=== PATIENT | female | born 1980 | race Caucasian/White ===

== ENCOUNTER 2024-08-12 11:01 | Emergency (ER) | payer MEDICAID, OTHER ==
[~2024-08-12] VITALS: Ht 154.9 cm; Wt 80.9 kg
[2024-08-12 12:21] LABS: Basophils # (auto) 0.1 10 ^3/uL (0-0.2); Basophils % (auto) 0.6 % (0.0-2.0); Eosinophils # (auto) 0.1 10 ^3/uL (0-0.8); Eosinophils % (auto) 1.2 % (0.0-7.0); Hematocrit 44.8 % (36.0-46.0); Hemoglobin 15.4 g/dL (12.2-16.2); Lymphocytes # (auto) 1.7 10 ^3/uL (0.4-5.4); Lymphocytes % (auto) 14.7 % (10.0-50.0); Mean Corpuscular Hemoglobin 28.2 pg (28.0-32.0); Mean Corpuscular Hgb Conc. 34.3 g/dL (32.0-36.0); Mean Corpuscular Volume 82.2 fL (80.0-100.0); Monocytes # (auto) 0.6 10 ^3/uL (0-1.3); Monocytes % (auto) 5.4 % (0.0-12.0); Neutrophils # (auto) 9.3 10 ^3/uL (1.6-8.6); Neutrophils % (auto) 78.1 % (37.0-80.0); Nucleated Red Blood Cells % 0.3 %; Platelet Count (auto) 269 10^3/uL (140-450); Red Blood Cells 5.45 10^6/uL (4.0-5.20); Red Cell Distribution Width 13.4 % (11.8-14.3); White Blood Cell 11.9 10^3/uL (4.4-10.8)
[2024-08-12 12:42] LABS: Urine Bacteria FEW /hpf (None Seen); Urine Blood 3+ /uL (Negative); Urine Clarity Turbid (Clear); Urine Color Yellow (Yellow); Urine Mucus FEW (None Seen); Urine Protein, UAD 1+ (Negative); Urine Urobilinogen Normal (Negative); Urine WBC 5 /hpf (0 - 5); Urine pH 5.5 (5.0-9.0)
[2024-08-12 12:49] LABS: Amphetamine Screen, Urine Neg (NEGATIVE); Barbiturate Scree,Urine Neg (NEGATIVE); Benzodiazephine Screen, Urine Neg (NEGATIVE); Cocaine Screen, Urine Pos (NEGATIVE); Opiate Scree,Urine Neg (NEGATIVE); Phencyclidine Screen, Urine Neg (NEGATIVE)
[2024-08-12 12:50] LABS: Cannabinoid Screen, Urine Neg (NEGATIVE)
[2024-08-12 13:00] LABS: Alanine Aminotransferase 22 U/L (7-40); Albumin 4.7 g/dL (3.2-4.8); Alkaline Phosphatase 76 U/L (46-116); Anion Gap 9 (5-15); Aspartate Aminotransferase 8 U/L (13-40); BUN/Creatinine Ratio 18.3 (10.0-20.0); Bilirubin, Total 0.7 mg/dL (0.2-1.0); Blood Urea Nitrogen 13 mg/dL (9-23); Carbon Dioxide 26 mmol/L (20-30); Chloride 106 mmol/L (98-107); Glucose 106 mg/dL (74-106); Potassium 4.1 mmol/L (3.5-5.1); Sodium 141 mmol/L (136-145)
[2024-08-12 13:01] LABS: Total Protein 7.1 g/dL (5.7-8.2)
[2024-08-12] MEDS ORDERED: NITR-87 PO (14:12)
[2024-08-12] MEDS: SODIUM CHLORIDE 0.9% 1,000 ML IV ONE (16:18)
[2024-08-12] MEDS: MORPHINE SULFATE INJ 2 MG/ml SYRG IV ONE (16:19)
[2024-08-12 16:25] VITALS: BP 176/101; PULSE 66; RESP 24; TEMP 98; O2SAT 99
== END 2024-08-12 13:02 | disposition left against medical advice (07) ==
LOC: ER 11:01
DX: I10 Essential (primary) hypertension (principal); R10.2 Pelvic and perineal pain; N83.202 Unspecified ovarian cyst, left side; N83.201 Unspecified ovarian cyst, right side; N85.9 Noninflammatory disorder of uterus, unspecified; N39.0 Urinary tract infection, site not specified; F14.10 Cocaine abuse, uncomplicated; Z98.890 Other specified postprocedural states; Z79.899 Other long term (current) drug therapy
CPT/HCPCS: 36415; 74176; 76856; 80053; 80307; 81001; 83605; 83735; 84484; 84702; 85025; 86850; 86900; 86901; 96361; 96374; 99285; J2270; J7030